=== PATIENT | male | born 1990 | race Caucasian/White ===

== ENCOUNTER 2020-09-10 13:46 | Emergency (ER) | payer OTHER ==
[~2020-09-10] VITALS: Ht 182.9 cm; Wt 90.7 kg
[2020-09-10 13:56] VITALS: BP 96/50
[2020-09-10] MEDS ORDERED: TRIPLE ANTIBI28.4 G3 TOP (14:04)
== END 2020-09-10 14:23 | disposition home or self-care (01) ==
LOC: ER 13:46
DX: S00.452A Superficial foreign body of left ear, initial encounter (principal); W22.8XXA Striking against or struck by other objects, initial encounter; Y93.89 Activity, other specified; Y92.89 Other specified places as the place of occurrence of the external cause; Y99.8 Other external cause status

== ENCOUNTER 2021-05-19 01:35 | Emergency (ER) | payer OTHER ==
[~2021-05-19] VITALS: Ht 190.5 cm; Wt 88.0 kg
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
[~2021-05-19 01:35] MED LIST: TRIPLE ANTIBI28.4 G3 TOP
[2021-05-19 03:55] VITALS: BP 132/78
== END 2021-05-20 03:55 ==
LOC: ER 01:35
DX: S01.01XA Laceration without foreign body of scalp, initial encounter (principal); W18.09XA Striking against other object with subsequent fall, initial encounter; Y93.89 Activity, other specified; Y92.89 Other specified places as the place of occurrence of the external cause; Y99.8 Other external cause status